=== PATIENT | female | born 1990 | race Caucasian/White ===

== ENCOUNTER 2016-05-05 23:23 | Emergency (ER) | payer OTHER ==
[2016-05-05 23:28] VITALS: TEMP 98.3
--- NOTE | 2016-05-05 23:49 | ED ---
Abdominal Pain HPI - General Chief Complaint: Abdominal Pain Stated Complaint: Back Pain Time Seen by Provider: 05/05/16 23:35 Source: patient, RN notes reviewed Mode of arrival: ambulatory Limitations: no limitations - History of Present Illness Initial Comments: This is a 26-year-old female who states she's had urinary frequency for about a week. She was seen at [facility] 4 days ago and diagnosed with urinary tract infection and started on Keflex. He states the pain is slightly better initially however started on right now is in the left she does have still frequency her pain is slightly better tonight and 67/10 in severity does seem to radiate down toward her groin on the right side. She does state the pain somewhat he gets worse with deep breathing though she denies any fevers chills nausea vomiting sweats at this time though she did have some nausea earlier she does states she's also been taking a lot of Motrin. No other complaints at this time there is a remote family history kidney stones with a grandmother. The patient has no personal history of kidney stones. She states she is not she had a negative test 4 days ago he also is on Depo. Complaint: flank pain, other - Related Data Home Medications Medication Instructions Recorded Confirmed Cephalexin [Keflex] 500 mg PO Q6HR 05/05/16 05/05/16 HYDROcodone/APAP 5-325MG [Hector 2 tab PO Q6H PRN 05/05/16 05/05/16 5-325] Previous Rx's Medication Instructions Recorded Phenazopyridine HCl [Pyridium] 200 mg PO AC-TID #15 tablet 05/06/16 Allergies Allergy/AdvReac Type Severity Reaction Status Date / Time codeine Allergy Severe Anaphylaxis Verified 05/05/16 23:38 Review of Systems ROS Statement: Those systems with pertinent positive or pertinent negative responses have been documented in the HPI. ROS Other: All systems not noted in ROS Statement are negative. Past Medical History Past Medical History: No Reported History History of Any Multi-Drug Resistant Organisms: None Reported Past Surgical History: Section Past Anesthesia/Blood Transfusion Reactions: No Reported Reaction Past Psychological History: No Psychological Hx Reported Smoking Status: Current every day smoker Past Alcohol Use History: Rare Past Drug Use History: Cocaine, Heroin - Past Family History Mother Family Medical History: No Reported History General Exam - General Exam Comments Initial Comments: This is a well-developed well-nourished awake alert oriented 3 female Limitations: no limitations General appearance: alert, in no apparent distress Head exam: Present: atraumatic, normocephalic, normal inspection Eye exam: Present: normal appearance, PERRL, EOMI. Absent: scleral icterus, conjunctival injection, periorbital swelling ENT exam: Present: normal exam, mucous membranes moist Neck exam: Present: normal inspection. Absent: tenderness, meningismus, lymphadenopathy Respiratory exam: Present: normal lung sounds bilaterally. Absent: respiratory distress, wheezes, rales, rhonchi, stridor Cardiovascular Exam: Present: regular rate, normal rhythm, normal heart sounds. Absent: systolic murmur, diastolic murmur, rubs, gallop, clicks GI/Abdominal exam: Present: soft, normal bowel sounds. Absent: distended, tenderness, guarding, rebound, rigid Rectal exam: Present: deferred Extremities exam: Present: normal inspection, full ROM, normal capillary refill. Absent: tenderness, pedal edema, joint swelling, calf tenderness Back exam: Present: normal inspection, CVA tenderness (R). Absent: CVA tenderness (L), paraspinal tenderness, vertebral tenderness Neurological exam: Present: alert, oriented X3, CN II-XII intact Psychiatric exam: Present: normal affect, normal mood Skin exam: Present: warm, dry, intact, normal color. Absent: rash Course Vital Signs 05/05/16 23:26 Temperature 98.3 F Pulse Rate 103 H Respiratory 18 Rate Blood Pressure 117/77 O2 Sat by Pulse 98 Oximetry - Reevaluation(s) Reevaluation #1: 05/06/16 00:25 Records were obtained from [facility] from 05/02/16 urine did show evidence of nitrites greater than 100 white cells 11-20 red cells and many bacteria. I did review the culture sensitivity it did show greater than 100, 000 E. coli. From the findings the Keflex the patient is on should be adequate. Medical Decision Making - Medical Decision Making I did review the CAT scan are is evidence of small calcifications both kidneys nothing obstructive however. I did discuss findings with the patient she will continue with Keflex she will be placed on Pyridium due to the symptoms of frequency she is to continue the Keflex oral fluids follow-up with Dr. caceres when necessary - Lab Data Lab Results 05/05/16 Range/Units 23:50 Urine Color Yellow Urine Appearance Clear (Clear) Urine pH 6.0 (5.0-8.0) Ur Specific [place] 1.018 (1.001-1.035) Urine Protein Trace H (Negative) Urine Glucose (UA) Negative (Negative) Urine Ketones Negative (Negative) Urine Blood Negative (Negative) Urine Nitrate Negative (Negative) Urine Bilirubin Negative (Negative) Urine Urobilinogen 2.0 (<2.0) mg/dL Ur Leukocyte Esterase Trace H (Negative) Urine RBC 1 (0-5) /hpf Urine WBC 10 H (0-5) /hpf Ur Squamous Epith Cells 2 (0-4) /hpf Hyaline Casts 3 H (0-2) /lpf Urine Mucus Moderate H (None) /hpf - Radiology Data Radiology results: report reviewed (I did review the imaging and report no acute findings patient does demonstrate mild scoliosis some pelvic calcifications are seen on the right.), image reviewed Disposition Clinical Impression: Urinary tract infection Disposition: HOME SELF-CARE Condition: Good Instructions: Dysuria (ED), Urinary Tract Infection in Women (ED) Prescriptions: Phenazopyridine HCl [Pyridium] 200 mg PO AC-TID #15 tablet
[2016-05-06 00:03] LABS: Appearance,Urine Clear (Clear); Bilirubin,Urine Negative (Negative); Glucose,Urine (UA) Negative (Negative); Ketones,Urine Negative (Negative); Leukocyte Esterase,Urine Trace (Negative); Mucus,Urine Moderate /hpf; Nitrite,Urine Negative (Negative); Particle Count 4361; Protein,Urine Trace (Negative); RBC,Urine 1 /hpf (0-5); Specific Gravity,Urine 1.018 (1.001-1.035); Squamous Epithelial Cell,Urine 2 /hpf (0-4); UA Billing (MACRO vs. MICRO) MICRO; WBC,Urine 10 /hpf (0-5)
--- NOTE | 2016-05-06 00:05 | XR ---
EXAMINATION TYPE: XR abdomen 1V DATE OF EXAM: 05/05/2016 11:55 PM CLINICAL HISTORY: Pain, back pain TECHNIQUE: 2 frontal upright radiographs of abdomen were obtained. COMPARISON: 09/14/2013 FINDINGS: Scattered gas is seen in non-distended small bowel loops. Gas and fecal material is seen in non-distended colon. There is no visceromegaly, pneumoperitoneum, or abnormal calcification appr eciated. The lung bases are clear and the osseous structures are intact. There is mild S-shaped scol iosis noted in the thoracolumbar spine. IMPRESSION: Mild to moderate fecal material in the colon. Overall nonobstructive bowel gas pattern.
[2016-05-06] MEDS ORDERED: ACETAMINOPHEN TAB 500 MG TAB PO STA (00:10)
--- NOTE | 2016-05-06 00:52 | CT ---
EXAMINATION TYPE: CT abdomen pelvis wo con DATE OF EXAM: 05/06/2016 12:30 AM COMPARISON: NONE HISTORY: back pain, renal stone protocol CT DLP: 231.00 mGycm Automated exposure control for dose reduction was used. TECHNIQUE: Helical acquisition of images was performed from the lung bases through the pelvis. FINDINGS: LUNG BASES: No significant abnormality is appreciated. LIVER/GB: There is mild hepatomegaly. Gallbladder is contracted and showed slightly thickened wall wi th possible chronic changes. PANCREAS: No significant abnormality is seen. SPLEEN: There is mild splenomegaly. ADRENALS: No significant abnormality is seen. KIDNEYS: No significant hydronephrosis or obstructing opaque stones are noted in the right kidney and right ureter. Tiny 1 to 2 mm nonobstructing stones are suggested in the right kidney. Tiny 3 mm nonobstructing stone is noted in the lower pole area of left kidney. No definite obstructin g opaque stones are noted in the left kidney and left ureter. No hydronephrosis is noted on the left side. The distal bilateral ureters are not well visualized. Tiny densities in the pelvis are most likely ph leboliths rather than distal ureter stones. RETROPERITONEAL ADENOPATHY: None visualized REPRODUCTIVE ORGANS: Uterus appears prominent in size. Mild cystic changes are suggested in both ovar ies. There is possibility of tiny free fluid in the right cul-de-sac. URINARY BLADDER: No significant abnormality is seen. PELVIC ADENOPATHY: None visualized. OSSEOUS STRUCTURES: No significant abnormality is seen. BOWEL: Patient is constipated. Large amount of fecal material is noted in the colon. Visualized appendix in the coronal image 29 and axial image 116 appears unremarkable. OTHER: IMPRESSION: 1. TINY NONOBSTRUCTING OPAQUE STONES ARE NOTED IN BOTH KIDNEYS WITHOUT SIGNIFICANT HYDRONEPHROSIS OR HYDROURETER BILATERALLY. NO DEFINITE OBSTRUCTING OPAQUE STONES ARE NOTED IN BOTH URETERS. 2. PATIENT IS CONSTIPATED. 3. MILD HEPATOSPLENOMEGALY. 4. VISUALIZED APPENDIX SHOWED NO SIGNIFICANT INFLAMMATION. 5. CONTRACTED GALLBLADDER.
--- NOTE | 2016-05-06 01:08 | ED ---
Medical Decision Making - Lab Data Lab Results 05/05/16 Range/Units 23:50 Urine Color Yellow Urine Appearance Clear (Clear) Urine pH 6.0 (5.0-8.0) Ur Specific [place] 1.018 (1.001-1.035) Urine Protein Trace H (Negative) Urine Glucose (UA) Negative (Negative) Urine Ketones Negative (Negative) Urine Blood Negative (Negative) Urine Nitrate Negative (Negative) Urine Bilirubin Negative (Negative) Urine Urobilinogen 2.0 (<2.0) mg/dL Ur Leukocyte Esterase Trace H (Negative) Urine RBC 1 (0-5) /hpf Urine WBC 10 H (0-5) /hpf Ur Squamous Epith Cells 2 (0-4) /hpf Hyaline Casts 3 H (0-2) /lpf Urine Mucus Moderate H (None) /hpf Disposition Clinical Impression: Urinary tract infection, Renal colic on right side Disposition: HOME SELF-CARE Condition: Good Instructions: Urinary Tract Infection in Women (ED), Dysuria (ED), Renal Colic (ED) Prescriptions: Phenazopyridine HCl [Pyridium] 200 mg PO AC-TID #15 tablet Referrals: Tabatha Huynh MD [Primary Care Provider] - 1-2 days
[2016-05-06 01:16] VITALS: BP 120/56; PULSE 87; RESP 16
== END 2016-05-06 01:13 | disposition home or self-care (01) ==
LOC: EC 23:23
DX: N39.0 Urinary tract infection, site not specified (principal); B96.20 Unspecified Escherichia coli [E. coli] as the cause of diseases classified elsewhere; N28.89 Other specified disorders of kidney and ureter; R10.31 Right lower quadrant pain; Z84.1 Family history of disorders of kidney and ureter; F17.200 Nicotine dependence, unspecified, uncomplicated; Z88.5 Allergy status to narcotic agent
CPT/HCPCS: 74000; 74176; 81001; 87086; 99284

== ENCOUNTER 2019-02-04 12:51 | Outpatient (CLI) | payer OTHER ==
[2019-02-04 13:55] VITALS: BP 118/69; PULSE 99; RESP 16; TEMP 97.3
--- NOTE | 2019-02-05 07:05 | P.MSEPDOC ---
Presenting Problems - Arrival Data Date of Arrival on Unit: 02/04/19 Time of Arrival on Unit: 12:51 Mode of Transport: Ambulatory - Complaint OB-Reason for Admission/Chief Complaint: Possible Onset of Labor Comment: pelvic pressure and occassional abdominal tightening Medical History - Information : 3 Para: 2 Term: 2 : 0 Abortions: Spontaneous or Elective: 0 Number of Living Children: 2 - Gestational Age Gestational Age by JENNIE (wks/days): 31 Weeks and 2 Days Review of Systems - Review of Systems Constitutional: No problems Breast: No problems ENT: No problems Cardiovascular: No problems Respiratory: No problems Gastrointestinal: No problems Genitourinary: No problems Musculoskeletal: No problems Neurological: No problems Skin: No problems Vital Signs - Temperature Temperature: 97.3 F Temperature Source: Temporal Artery Scan - Pulse Pulse Oximetery Pulse Rate: 99 Pulse Assessment Method: Pulse Oximetry - Respirations Respiratory Rate: 16 Oxygen Delivery Method: Room Air O2 Sat by Pulse Oximetry: 99 - Blood Pressure Right Arm Blood Pressure: 118/69 Blood Pressure Mean: 85 Blood Pressure Source: Automatic Cuff Medical Screen Scoring (Pre) - Cervical Exam Dilation: 0 cm = 0 Effacement: Exam Deferred Membranes: Intact - Uterine Contractions Frequency: N/A Duration: N/A Intensity: N/A - Maternal Vital Signs Maternal Temperature: N/A Maternal Blood Pressure: N/A Signs of Preeclampsia: N/A Maternal Respirations: N/A - Maternal Trauma Maternal Trauma: N/A - Assessment - Baby A Baseline FHR: 125 Heart Rate - NICHD Category: Category I (Normal) = 0 NST: Reactive Position: N/A Station: N/A - Total Score - Baby A Total Score - Baby A: 0 - Total Score - Baby B Total Score - Baby B: 0 - Total Score - Baby C Total Score - Baby C: 0 - Level of Risk - Baby A Level of Risk - Baby A: Low (0-5) - Level of Risk - Baby B Level of Risk - Baby B: Low (0-5) - Level of Risk - Baby C Level of Risk - Baby C: Low (0-5) Physician Notification (Pre) - Physician Notified Physician Notified Date: 02/04/19 Physician Notified Time: 13:30 New Order Received: Yes (discharge home) - Notification Comment Comment: Dr. Faith called, report given on maternal/ status, pt complaint of. "pelvic pressure" and abdominal tightening for several hours. Pt has no complications. with the but admits to intercourse within the last 24 hours. Initial BP was. 142/80, repeat was 118/69, no history of BP issues. Sterile vag exam performed, closed. and thick. No contractions noted on the monitor and NST is reactive. Orders to discharge pt with instructions to see Dr. Hays this week and refrain from any intercourse until she is seen by Dr. Hays. Disposition - Disposition OB Disposition: Discharge to home, Written follow up instructions reviewed Discharge Date: 02/04/19 Discharge Time: 13:35 I agree with the RN Medical Screening Exam: Yes Risk & Benefit of care provided described in d/c instruction: Yes Diagnosis: FALSE LABOR BEFORE 37 COMPLETED WEEKS OF GEST, THIRD TRI (Patient presented with complaints of cramping after having intercourse. fibronectin could not be obtained due to recent intercourse. Cervix was closed patient was having no appreciable contractions. Patient's felt be stable for discharge home follow up with Dr. Subramanian as scheduled. Return if she had increased symptomatology for labor symptoms. She is refrain from intercourse until her visit.)
== END 2019-02-04 13:35 | disposition home or self-care (01) ==
LOC: FBPOP 12:51
PROVIDERS: ATTEND Obstetrics & Gynecology
DX: O47.03 False labor before 37 completed weeks of gestation, third trimester (principal); Z3A.31 31 weeks gestation of pregnancy
CPT/HCPCS: 59025; G0463; 99213

== ENCOUNTER 2019-03-17 23:06 | Observation (INO) | payer OTHER ==
[2019-03-18] MEDS ORDERED: BUTORPHANOL 1 MG/ML 1 ML VIAL IV PRN (00:59)
[2019-03-18] MEDS: LACTATED RINGERS 1,000 ML IV SCH ×2 (01:26→06:39)
[2019-03-18 06:36] VITALS: BP 107/53; PULSE 66; RESP 15; TEMP 96.9
[2019-03-18] MEDS ORDERED: LACTATED RINGERS 1,000 ML IV SCH (06:45)
--- NOTE | 2019-03-18 10:48 | P.HPOB ---
History of Present Illness H&P Date: 03/18/19 Chief Complaint: False labor Lili is a 28-year-old 3 para 2 at 37 weeks gestation who last evening made a "midwives improved" with mineral oil and quad reduce and some other T with hopes of causing contractions that she's had 2 prior sections and wanted no contractions felt like. This is the reason she gave she denies wanting to put herself into labor, however it is unclear why she would make this decision since she is already scheduled for section on April 04. We reviewed risks of labor in a woman who is had 2 prior sections and explained that unfortunately unless she was in actual labor we would not do a section as she is only 37 weeks. Her cervix did not make change remained fingertip thick and -3 station throughout the evening. We did start an IV and give her some pain relief and contractions began to space out and at this time her contractions are very irregular and not painful as she was actually able to sleep for several hours this morning. Advised not to take any type of medicine like this again as it increases risk for uterine rupture or other potential problems compromising both she and her baby. She seems to understand this. All the questions are answered for her at this time. On physical exam vital signs are stable and afebrile. A category 1 tracing is noted. Heart regular, lungs clear, extremities are without pain. Abdomen soft and there is only intermittent contractions at this time. Assessment observational care. Plan discharge later today if contractions continue to dissipate Past Medical History Past Medical History: No Reported History History of Any Multi-Drug Resistant Organisms: None Reported Past Surgical History: Section Past Anesthesia/Blood Transfusion Reactions: No Reported Reaction Past Psychological History: Anxiety Smoking Status: Current every day smoker Past Alcohol Use History: None Reported, Rare Past Drug Use History: None Reported - Past Family History Mother Family Medical History: No Reported History Medications and Allergies Home Medications Medication Instructions Recorded Confirmed Type Pnv No.95/Ferrous Fum/Folic AC 1 tab PO DAILY 02/04/19 03/17/19 History [ Multivitamin Tablet] Allergies Allergy/AdvReac Type Severity Reaction Status Date / Time codeine Allergy Severe Anaphylaxis Verified 03/17/19 23:29 Exam Osteopathic Statement: *. No significant issues noted on an osteopathic structural exam other than those noted in the History and Physical/Consult. Vital Signs Temp Pulse Resp BP Pulse Ox 03/18/19 06:35 96.9 F L 66 15 107/53 03/18/19 02:54 96.8 F L 89 18 118/75 100 03/18/19 00:53 97.5 F L 94 16 138/83 98 Intake and Output 03/17/19 03/18/19 03/18/19 22:59 06:59 14:59 Other: # Voids 2 Weight 63.503 kg
--- NOTE | 2019-03-18 10:50 | P.DS ---
Providers Date of admission: 03/18/19 02:27 Expected date of discharge: 03/18/19 Attending physician: Sanchez Hays Primary care physician: Stated None Hospital Course: Lili again took a concoction to try and give herself contractions last night. She did contract quite a bit anywhere from every 2-4 minutes for a number of hours, however she made no cervical change and with a category 1 tracing the entire time no other therapy was needed other than some hydration and pain control. Had her cervix made change or there were concerns or questions or potential uterine tear or rupture would it moved immediately to a section, but after several hours of contractions they have virtually gone away. Her cervix remained fingertip thick and high. We are going to allow her to eat some breakfast this morning, and then discharge her to home she hasn't plugged follow-up with me in 1 week. However, should contractions increase or more problems occur she is to return immediately. All the questions were answered for her and discharge instructions were thoroughly reviewed especially including to please not take any more of that concoction to try and put her into labor due to risks both maternal and which may include uterine tear or rupture resulting in bleeding or for she and/or the baby. Patient Condition at Discharge: Good Plan - Discharge Summary New Discharge Prescriptions: No Action Pnv No.95/Ferrous Fum/Folic AC [ Multivitamin Tablet] 1 tab PO DAILY Discharge Medication List Pnv No.95/Ferrous Fum/Folic AC [ Multivitamin Tablet] 1 tab PO DAILY 02/04/19 [History]
== END 2019-03-18 11:05 | disposition home or self-care (01) ==
LOC: FBPOP 23:06 → 4FBP 03-18 02:27
PROVIDERS: ADMIT Obstetrics & Gynecology; ATTEND Obstetrics & Gynecology
DX: O47.1 False labor at or after 37 completed weeks of gestation (principal); F17.200 Nicotine dependence, unspecified, uncomplicated; Z98.891 History of uterine scar from previous surgery
CPT/HCPCS: 59025; 96361; 96374; G0463; G0378; J0595; 99214

== ENCOUNTER 2019-03-31 10:00 | Inpatient (IN) | payer OTHER ==
--- NOTE | 2019-03-30 09:16 | P.HPOB ---
History of Present Illness H&P Date: 03/30/19 Chief Complaint: Intrauterine at term: Repeat Lili is a 28-year-old at 39 weeks gestation who ryes for repeat section. Risks/benefits/alternatives to this procedure were discussed with the patient in detail and all questions were answered for her prior to proceeding to the operating room. She has had 2 prior sections. Her vital signs are stable and afebrile. Her course has been unremarkable up to this point and she is feeling well at this time. Risks/benefits/alternatives were reviewed including but not limited to bleeding and infection, damage to bladder or bowel, vascular injuries or nerve damage. She is aware that this is a surgical procedure and that there are also anesthetic risks involved. Past Medical History Past Medical History: No Reported History History of Any Multi-Drug Resistant Organisms: None Reported Past Surgical History: Section Past Anesthesia/Blood Transfusion Reactions: No Reported Reaction Past Psychological History: Anxiety Smoking Status: Current every day smoker Past Alcohol Use History: None Reported, Rare Past Drug Use History: None Reported - Past Family History Mother Family Medical History: No Reported History Medications and Allergies Home Medications Medication Instructions Recorded Confirmed Type Pnv No.95/Ferrous Fum/Folic AC 1 tab PO DAILY 02/04/19 03/17/19 History [ Multivitamin Tablet] Allergies Allergy/AdvReac Type Severity Reaction Status Date / Time codeine Allergy Severe Anaphylaxis Verified 03/17/19 23:29 Exam Osteopathic Statement: *. No significant issues noted on an osteopathic structural exam other than those noted in the History and Physical/Consult. - OBG Physical Exam Breast: both: normal (no masses) Abdomen: bowel sounds normal, no diffuse tenderness, no bruit present, no guarding noted, no hepatomegaly, no splenomegaly, no mass Vulva: both: normal Vagina: normal moisture, no discharge Cervix: no lesion, no discharge Uterus: normal size, normal contour Adnexa: both: normal Anus/Rectum: normal perianal skin, no rectal mass, no hemorrhoids, heme negative
[2019-03-30 11:10] VITALS: BMI 24.8
[2019-03-31] MEDS ORDERED: CITRIC ACID-SODIUM CITRATE 15 ML CUP PO ONE (10:21)
[2019-03-31] MEDS: LACTATED RINGERS 1,000 ML IV SCH ×4 (10:37→23:34)
[2019-03-31 11:01] LABS: Basophils % (A) 0 %; Eosinophils % (A) 0 %; HCT 36.3 % (34.0-46.0); HGB 12.3 gm/dL (11.4-16.0); Lymphocytes # (A) 1.3 k/uL (1.0-4.8); Lymphocytes % (A) 17 %; MCH 31.1 pg (25.0-35.0); MCHC 33.9 g/dL (31.0-37.0); MCV 91.6 fL (80.0-100.0); Monocytes # (A) 0.4 k/uL (0-1.0); Monocytes % (A) 5 %; Neutrophils # (A) 6.1 k/uL (1.3-7.7); Neutrophils % (A) 77 %; Platelet Count 150 k/uL (150-450); RBC 3.96 m/uL (3.80-5.40); RDW 13.2 % (11.5-15.5)
[2019-03-31 11:21] LABS: Amphetamine Screen,Urine Not Detected (NotDetected); Barbiturate Screen,Urine Not Detected (NotDetected); Benzodiazepines Screen,Urine Not Detected (NotDetected); Cocaine Screen,Urine Not Detected (NotDetected); Methadone Screen, Urine Not Detected (NotDetected); Opiate Screen,Urine Not Detected (NotDetected); Oxycodone Screen, Urine Not Detected (NotDetected); Phencyclidine Screen,Urine Not Detected (NotDetected); Tricyclic Antidepressant,Urine Not Detected (NotDetected); Urn Cannabinoid Scrn Not Detected (NotDetected)
[2019-03-31] MEDS ORDERED: diphenhydrAMINE 50 MG/ML 1 ML VIAL ONE (12:10)
[2019-03-31] MEDS ORDERED: OXYTOCIN 10 UNIT/ML 1 ML VIAL ONE (12:10)
[2019-03-31] MEDS ORDERED: DEXAMETHASONE SOD PHOS (MDV) 100 MG/10 ML VIAL ONE (12:10)
[2019-03-31] MEDS ORDERED: ONDANSETRON 4 MG/2 ML VIAL ONE (12:10)
[2019-03-31] MEDS ORDERED: fentaNYL (PF) 50 MCG/ML 2 ML AMP ONE (12:10)
[2019-03-31] MEDS ORDERED: KETOROLAC 30 MG/ML 1 ML VIAL ONE (12:10)
[2019-03-31] MEDS ORDERED: NALBUPHINE 10 MG/ML (1 ML AMP) ONE (12:10)
[2019-03-31] MEDS ORDERED: MORPHINE SULFATE (PF) 0.3 MG/0.3 ML SYR ONE (12:10)
[2019-03-31] MEDS ORDERED: KETOROLAC 30 MG/ML 1 ML VIAL IVP PRN ×2 (12:47→12:59)
[2019-03-31] MEDS ORDERED: diphenhydrAMINE 50 MG/ML 1 ML VIAL IVP PRN ×3 (12:47→12:59)
[2019-03-31] MEDS ORDERED: NALBUPHINE 10 MG/ML (1 ML AMP) IV PRN (12:47)
[2019-03-31] MEDS ORDERED: MORPHINE SULFATE 2 MG/ML SYRINGE IVP PRN (12:47)
[2019-03-31] MEDS ORDERED: NALOXONE 0.4 MG/ML 1 ML VIAL IV PRN ×2 (12:47→12:59)
[2019-03-31] MEDS ORDERED: ONDANSETRON 4 MG/2 ML VIAL IVP PRN (12:59)
[2019-03-31] MEDS ORDERED: SIMETHICONE 80 MG CHEWABLE PO PRN (12:59)
[2019-03-31] MEDS ORDERED: ZOLPIDEM 5 MG TAB PO PRN (12:59)
[2019-03-31] MEDS ORDERED: diphenhydrAMINE 25 MG CAP PO PRN (12:59)
[2019-03-31] MEDS ORDERED: diphenhydrAMINE 50 MG CAP PO PRN (12:59)
[2019-03-31] MEDS ORDERED: METOCLOPRAMIDE 5 MG/ML 2 ML VIAL IVP PRN (12:59)
--- NOTE | 2019-03-31 13:04 | P.OP ---
Date of Procedure: 03/31/19 Preoperative Diagnosis: Intrauterine at term: Prior section Postoperative Diagnosis: Same Procedure(s) Performed: Repeat low transverse section Anesthesia: spinal Surgeon: Sanchez Hays Paving Crew Foreman #1: Sujey Corona Estimated Blood Loss (ml): 400 IV fluids (ml): 500 Urine output (ml): 100 Pathology: other (Placenta) Condition: stable Disposition: floor Operative Findings: Female scores of 4, 7, and 9 at one and 5 and 10 minutes with a weight of 7 lbs. 1 oz. Description of Procedure: Patient was taken to the operating suite where a spinal anesthetic was found be adequate. She was prepped and draped in normal sterile fashion and placed in the dorsal supine position with leftward tilt. Initially a Pfannenstiel skin incision was made and this incision knife. Fascia was then nicked in the midline and this opening was extended laterally with He scissors. Superior and inferior aspect of this incision were then grasped tented up and bluntly and sharply dissected off the rectus muscles. Rectus muscles were then divided midline and sharp dissection through the peritoneum was made. This opening was then extended superiorly and inferiorly with good visualization of both bowel bladder. Bladder blade was then placed bladder flap identified and entered with metastases scissors and carried across face uterus but sponsors. Bladder was then dissected out of the operative field. Knife was then used to incise uterus this opening was then fully developed with hemostat and then extended bluntly. Artificial rupture membranes revealed light meconium noted. Once accomplished head was atraumatically delivered followed by anterior posterior shoulders with gentle downward and upward traction and the remainder the baby. At patient's request uterus was then exteriorized cleared of clots and debris and closed in 1 layer with 0 Vicryl suture. 3-0 Vicryl was then used to redrape reapproximate the bladder flap. Blood and debris was then suctioned from the posterior cul-de-sac and the uterus was reinserted into the abdomen. Peritoneal layer was then delineated with hemostats and closed with 0 Vicryl suture. Fascial layer was then closed with 0 Vicryl suture. One layer of 3-0 Vicryl was placed in the deep subcuticular tissues to reapproximate the skin the skin was then closed with 3-0 Vicryl subcuticularly. Sponge, lap, needle counts were all correct 2. She was then taken to the recovery room in stable and satisfactory condition.
[2019-03-31] MEDS: IBUPROFEN 600 MG TAB PO PRN (19:53)
[2019-03-31] MEDS: SENNOSIDES-DOCUSATE SODIUM 1 EACH TAB PO SCH (19:54)
[2019-03-31 20:18] VITALS: RESP 16
[2019-03-31] MEDS: HYDROcodone/APAP 7.5-325MG 1 EACH TAB PO PRN (23:53)
[2019-04-01] MEDS: IBUPROFEN 600 MG TAB PO PRN ×3 (03:57→18:00)
[2019-04-01] MEDS: LACTATED RINGERS 1,000 ML IV SCH (04:01)
[2019-04-01 07:05] LABS: Basophils % (A) 0 %; Eosinophils % (A) 0 %; HCT 33.1 % (34.0-46.0); HGB 11.2 gm/dL (11.4-16.0); Lymphocytes # (A) 1.8 k/uL (1.0-4.8); Lymphocytes % (A) 15 %; MCH 30.9 pg (25.0-35.0); MCHC 33.7 g/dL (31.0-37.0); MCV 91.8 fL (80.0-100.0); Mean Platelet Volume 9.1; Monocytes # (A) 0.7 k/uL (0-1.0); Monocytes % (A) 6 %; Neutrophils # (A) 9.2 k/uL (1.3-7.7); Neutrophils % (A) 77 %; Platelet Count 143 k/uL (150-450); RBC 3.61 m/uL (3.80-5.40); RDW 13.2 % (11.5-15.5); WBC 11.9 k/uL (3.8-10.6)
--- NOTE | 2019-04-01 07:28 | P.PNOBGPC ---
Subjective - Subjective Patient reports: Reports appetite normal, Reports voiding normally, Reports pain well controlled, Reports ambulating normally : doing well Objective - Vital Signs Latest vital signs: Vital Signs Temp Pulse Resp BP Pulse Ox 04/01/19 04:00 98.3 F 68 16 112/65 04/01/19 00:00 98.3 F 63 16 110/63 99 03/31/19 21:00 100 03/31/19 20:00 97.8 F 67 16 115/61 03/31/19 17:00 18 03/31/19 15:48 16 97 03/31/19 15:00 97.5 F L 54 L 16 122/73 99 03/31/19 14:30 56 L 16 144/67 100 03/31/19 14:00 97.1 F L 59 L 16 123/64 100 03/31/19 13:46 16 99 03/31/19 13:45 55 L 18 109/58 100 03/31/19 13:30 57 L 18 123/69 100 03/31/19 13:15 73 18 118/65 99 03/31/19 13:00 97.6 F 74 18 114/58 97 03/31/19 12:48 18 97 03/31/19 10:52 97.6 F 77 18 135/67 98 Intake and Output 03/31/19 04/01/19 04/01/19 22:59 06:59 14:59 Output Total 2800 2700 Balance -2800 -2700 Output: Urine 2800 2700 Straight 900 Uretheral (Jimenez) 1400 Other: # Voids 1 - Exam Lungs: bilateral: normal Chest: Normal S1, Normal S2 Extremities: Present: normal Abdomen: Present: normal appearance, soft. Absent: distention, tenderness Incision: Present: normal, dry, intact Uterus: Present: normal, firm - Labs Labs: Abnormal Lab Results - Last 24 Hours (Table) 04/01/19 Range/Units 06:40 WBC 11.9 H (3.8-10.6) k/uL RBC 3.61 L (3.80-5.40) m/uL Hgb 11.2 L (11.4-16.0) gm/dL Hct 33.1 L (34.0-46.0) % Plt Count 143 L (150-450) k/uL Neutrophils # 9.2 H (1.3-7.7) k/uL Assessment and Plan Assessment: Postoperative day #1. Patient is resting without complaints. Vital signs are stable she is afebrile. Her incision is intact and dry. CBC was normal today. Plan is to continue regular diet, encourage ambulation, allow the patient to shower, and most likely will go home tomorrow. (1) delivery delivered Current Visit: No Status: Acute Code(s): O82 - ENCOUNTER FOR DELIVERY WITHOUT INDICATION SNOMED Code(s): 887389476
--- NOTE | 2019-04-01 08:17 | P.PN ---
Progress Note - Text Progress Note Date: 04/01/19 ( ) 28 yo s/p c/section with duramorph spinal. Ambulating well, VAS 2-4/10 in severity. no pruritis, voiding well, no motor or sensory deficits. no back pain. overall doing well.
[2019-04-01] MEDS: SENNOSIDES-DOCUSATE SODIUM 1 EACH TAB PO SCH ×2 (09:18→20:46)
[2019-04-01] MEDS: ACETAMINOPHEN TAB 325 MG TAB PO PRN (09:18)
[2019-04-01] MEDS: HYDROcodone/APAP 7.5-325MG 1 EACH TAB PO PRN ×2 (14:51→20:49)
[2019-04-02] MEDS: IBUPROFEN 600 MG TAB PO PRN (02:50)
[2019-04-02] MEDS: ACETAMINOPHEN TAB 325 MG TAB PO PRN (05:29)
--- NOTE | 2019-04-02 07:03 | P.PNOBGPC ---
Subjective - Subjective Patient reports: Reports appetite normal, Reports voiding normally, Reports pain well controlled, Reports ambulating normally : doing well Objective - Vital Signs Latest vital signs: Vital Signs Temp Pulse Resp BP 04/02/19 00:00 98.3 F 68 16 120/82 04/01/19 16:00 98.2 F 69 16 119/60 04/01/19 11:50 97.7 F 73 16 125/79 04/01/19 08:00 97.4 F L 69 16 125/71 - Exam Lungs: bilateral: normal Chest: Normal S1, Normal S2 Extremities: Present: normal Abdomen: Present: normal appearance, soft. Absent: distention, tenderness Incision: Present: normal, dry, intact Uterus: Present: normal, firm - Labs Labs: Abnormal Lab Results - Last 24 Hours (Table) 04/01/19 Range/Units 06:40 WBC 11.9 H (3.8-10.6) k/uL RBC 3.61 L (3.80-5.40) m/uL Hgb 11.2 L (11.4-16.0) gm/dL Hct 33.1 L (34.0-46.0) % Plt Count 143 L (150-450) k/uL Neutrophils # 9.2 H (1.3-7.7) k/uL Assessment and Plan Assessment: Postoperative day #2. Patient is resting without new complaints and wishes to go home. Vital signs are stable she is afebrile. Her incision is intact and dry. Plan today is to continue routine care discharge home later today. (1) delivery delivered Current Visit: No Status: Acute Code(s): O82 - ENCOUNTER FOR DELIVERY WITHOUT INDICATION SNOMED Code(s): 590603946
--- NOTE | 2019-04-02 07:11 | P.DS ---
Providers Date of admission: 03/31/19 10:00 Expected date of discharge: 04/02/19 Attending physician: Sanchez Hays Primary care physician: Stated None - Discharge Diagnosis(es) (1) delivery delivered Current Visit: No Status: Acute Hospital Course: Please see dictated H&P for intimate details of this patient's admission. In brief summary this is a 28-year-old 3 para 2 female admitted for elective repeat section. Patient is admitted she has a repeat low transverse section for viable female . Please see dictated operative note per Dr. Subramanian. Postoperative Day #2 patient's felt to be stable for discharge home follow up with Dr. Hays 1 week. Procedures: Repeat low transverse section Patient Condition at Discharge: Good Plan - Discharge Summary Discharge Rx Participant: No New Discharge Prescriptions: New Ibuprofen [Motrin] 600 mg PO Q6HR PRN #40 tab PRN Reason: Mild Pain Or Fever >= 100.5 HYDROcodone/APAP 7.5-325MG [[place] 7.5-325] 1 each PO Q6H PRN #12 tab PRN Reason: Severe Pain No Action Pnv No.95/Ferrous Fum/Folic AC [ Multivitamin Tablet] 1 tab PO DAILY Acetaminophen Tab [Tylenol Tab] 650 mg PO BID Discharge Medication List Pnv No.95/Ferrous Fum/Folic AC [ Multivitamin Tablet] 1 tab PO DAILY 02/04/19 [History] Acetaminophen Tab [Tylenol Tab] 650 mg PO BID 03/30/19 [History] HYDROcodone/APAP 7.5-325MG [[place] 7.5-325] 1 each PO Q6H PRN #12 tab 04/02/19 [Rx] Ibuprofen [Motrin] 600 mg PO Q6HR PRN #40 tab 04/02/19 [Rx] Follow up Appointment(s)/Referral(s): Sanchez Hays DO [Doctor of Osteopathic Medicine] - 04/13/19 1:30 pm (Patient also has a visit on May 15 at 10 AM.) Patient Instructions/Handouts: (DC) Activity/Diet/Wound Care/Special Instructions: No intercourse or anything per vagina for 6 weeks. No strenuous activity or heavy lifting for 6 weeks. Please call if any fever, chills, excessive vaginal bleeding, and/or abdominal pain. Discharge Disposition: HOME SELF-CARE
[2019-04-02 09:13] VITALS: BP 136/68; PULSE 64; TEMP 98.1
[2019-04-02] MEDS: SENNOSIDES-DOCUSATE SODIUM 1 EACH TAB PO SCH (09:14)
[2019-04-02] MEDS: HYDROcodone/APAP 7.5-325MG 1 EACH TAB PO PRN (09:21)
== END 2019-04-02 10:30 | disposition home or self-care (01) | DRG 788 ==
LOC: 4FBP 10:00
PROVIDERS: ADMIT Obstetrics & Gynecology; ATTEND Obstetrics & Gynecology
PROC: 10D00Z1 Extraction of Products of Conception, Low, Open Approach (ICD-10-PCS; principal; 2019-03-31 12:00)
DX: O34.211 Maternal care for low transverse scar from previous cesarean delivery (principal); O99.334 Smoking (tobacco) complicating childbirth; F17.200 Nicotine dependence, unspecified, uncomplicated; O77.0 Labor and delivery complicated by meconium in amniotic fluid; Z3A.39 39 weeks gestation of pregnancy; Z37.0 Single live birth; Z88.5 Allergy status to narcotic agent; Z86.59 Personal history of other mental and behavioral disorders
CPT/HCPCS: 80306; 85025; 86850; 86900; 86901; 88307

== ENCOUNTER 2020-08-01 08:50 | Inpatient (IN) | payer OTHER ==
[2020-08-01] MEDS ORDERED: OXYTOCIN 10 UNIT/ML 1 ML VIAL IM PRN (10:17)
[2020-08-01] MEDS ORDERED: CARBOPROST TROMETHAMINE 250 MCG/ML 1 ML AMP IM PRN (10:17)
[2020-08-01] MEDS ORDERED: CITRIC ACID-SODIUM CITRATE 15 ML CUP PO ONE (10:19)
[2020-08-01] MEDS ORDERED: LACTATED RINGERS 1,000 ML IV SCH (10:30)
[2020-08-01 10:54] LABS: Basophils % (A) 0 %; Eosinophils % (A) 0 %; HCT 37.9 % (34.0-46.0); HGB 13.2 gm/dL (11.4-16.0); Lymphocytes # (A) 1.6 k/uL (1.0-4.8); Lymphocytes % (A) 21 %; MCH 31.6 pg (25.0-35.0); MCHC 34.7 g/dL (31.0-37.0); Mean Platelet Volume 8.9; Monocytes # (A) 0.3 k/uL (0-1.0); Monocytes % (A) 4 %; Neutrophils # (A) 5.6 k/uL (1.3-7.7); Neutrophils % (A) 73 %; Platelet Count 155 k/uL (150-450); RBC 4.17 m/uL (3.80-5.40); WBC 7.7 k/uL (3.8-10.6)
[2020-08-01] MEDS ORDERED: MORPHINE SULFATE (PF) 0.3 MG/0.3 ML SYR ONE (12:53)
[2020-08-01] MEDS ORDERED: HYDROmorphone (PF) 1 MG/ML ONE (12:53)
[2020-08-01] MEDS ORDERED: ONDANSETRON 4 MG/2 ML VIAL ONE (12:53)
[2020-08-01] MEDS ORDERED: OXYTOCIN 10 UNIT/ML 1 ML VIAL ONE (12:53)
[2020-08-01] MEDS ORDERED: KETOROLAC 15 MG/ML 1 ML VIAL ONE (12:53)
[2020-08-01] MEDS ORDERED: diphenhydrAMINE 50 MG/ML 1 ML VIAL ONE (12:53)
[2020-08-01] MEDS ORDERED: NALBUPHINE 10 MG/ML (1 ML AMP) ONE (12:53)
[2020-08-01] MEDS ORDERED: fentaNYL (PF) 50 MCG/ML 2 ML AMP ONE (12:53)
[2020-08-01] MEDS ORDERED: diphenhydrAMINE 25 MG CAP PO PRN (13:49)
[2020-08-01] MEDS ORDERED: ZOLPIDEM 5 MG TAB PO PRN (13:49)
[2020-08-01] MEDS ORDERED: ONDANSETRON 4 MG/2 ML VIAL IVP PRN (13:49)
[2020-08-01] MEDS ORDERED: NALOXONE 0.4 MG/ML 1 ML VIAL IV PRN (13:49)
[2020-08-01] MEDS ORDERED: HYDROmorphone 2 MG TAB PO PRN (13:49)
[2020-08-01] MEDS ORDERED: diphenhydrAMINE 50 MG CAP PO PRN (13:49)
[2020-08-01] MEDS ORDERED: diphenhydrAMINE 50 MG/ML 1 ML VIAL IVP PRN ×2 (13:49)
[2020-08-01] MEDS ORDERED: METOCLOPRAMIDE 5 MG/ML 2 ML VIAL IVP PRN (13:49)
--- NOTE | 2020-08-01 13:54 | P.HPOB ---
History of Present Illness H&P Date: 08/01/20 Chief Complaint: Uterine at term: Spontaneous rupture membranes: Prior se Pearson is a 22-year-old female who arrives following spontaneous rupture membranes at approximately midnight last night. She is having no contractions and is not in labor. She's had 3 prior sections and risks and benefits of repeat section were already reviewed with patient she declines tubal ligation. Risks did include but were not limited to bleeding and infection, damage to bladder or bowel vascular degrees nerve injuries possible damage to major vessels were nerve's. heart tones in the fetus are reactive prior to proceeding to the operating room. She relates that she was not sure if her water broke until this morning despite having leaking since midnight. Her course otherwise was unremarkable and she is feeling well at this ti me. Past Medical History Past Medical History: Skin Disorder Additional Past Medical History / Comment(s): Hx psoriasis. Hemorrhoids p ainful. Mild edema jama ankles. History of Any Multi-Drug Resistant Organisms: None Reported Past Surgical History: Section Past Anesthesia/Blood Transfusion Reactions: No Reported Reaction Past Psychological History: Anxiety Additional Psychological History / Comment(s): manageable Smoking Status: Never smoker Past Alcohol Use History: None Reported Additional Past Alcohol Use History / Comment(s): Smoking since 2013, was up to 1ppd, now smoking 1/2 ppd est Past Drug Use History: None Reported Additional Drug Use History / Comment(s): past drug use of opiates and cocaine, has been clean for 3 years - Past Family History Mother Family Medical History: No Reported History Medications and Allergies Home Medications Medication Instructions Recorded Confirmed Type Pnv No.95/Ferrous Fum/Folic AC 1 tab PO DAILY 02/04/19 08/01/20 History [ Multivitamin Tablet] Allergies Allergy/AdvReac Type Severity Reaction Status Date / Time codeine Allergy Severe Anaphylaxis Verified 08/01/20 08:54 Exam Osteopathic Statement: *. No significant issues noted on an osteopathic structural exam other than those noted in the History and Physical/Consult. Vital Signs Temp Pulse Resp BP Pulse Ox 08/01/20 11:03 98.4 F 93 14 117/69 98 08/01/20 09:48 98.2 F 65 14 111/78 Intake and Output 07/31/20 08/01/20 08/01/20 22:59 06:59 14:59 Other: Weight 58.967 kg - OBG Physical Exam Breast: both: normal (no masses) Abdomen: bowel sounds normal, no diffuse tenderness, no bruit present, no guarding noted, no hepatomegaly, no splenomegaly, no mass Vulva: both: normal Vagina: normal moisture, no discharge Cervix: no lesion, no discharge Uterus: normal size, normal contour Adnexa: both: normal Anus/Rectum: normal perianal skin, no rectal mass, no hemorrhoids, heme negative Results Result Diagrams: 08/01/20 10:00
--- NOTE | 2020-08-01 14:01 | P.OP ---
Date of Procedure: 08/01/20 Preoperative Diagnosis: Intrauterine at term: Spontaneous rupture membranes: Prior sections Postoperative Diagnosis: Same with uterine vascular injury on the left side Procedure(s) Performed: Repeat low transverse section Anesthesia: spinal Surgeon: Sanchez Hays Electrician Wiring #1: Zara Parsons Estimated Blood Loss (ml): 400 IV fluids (ml): 800 Urine output (ml): 200 Pathology: none sent Condition: stable Disposition: floor Operative Findings: Female scores of 9 and 9 at one and 5 minutes Willard weight was 6 lbs. 3 oz. Left uterine vascular injury noted requiring suture around the uterine vessels on the left side Description of Procedure: Patient was taken to the operative suite where a spinal anesthetic was found be adequate. She was prepped and draped in normal sterile fashion and placed in dorsal supine position with leftward tilt. Initially a Pfannenstiel skin incision was made and this incision was then carried through to the underlying layer of the fascia was second knife. Fascia was then nicked in the midline and this opening was extended laterally with He scissors. Superior and inferior aspect of this incision were then grasped tented up and bluntly and sharply dissected off the rectus muscles. Rectus muscles were then divided midline and sharp dissection the peritoneum was performed. This opening was then extended superiorly and inferiorly with good visualization of both bowel bladder. Bladder blade was then placed and bladder was noted to be out of the operative field therefore skin incision on the uterus was made and this incision was fully developed with hemostat and extended bluntly. Head was then H medically delivered from right occiput anterior position and mouth nares were bulb suction ed. Anterior and posterior shoulders delivered without difficulty followed by the remainder the baby. Umbilical cord was then clamped cut usual fashion an nursery personnel was present to assume care. Placenta was then delivered intact and Pitocin was added to the IV. Uterus was exteriorized cleared of clots and debris and closed with 0 Vicryl suture. During the closure it was noted that there was a vascular injury on the left uterine vessels and the mesosalpinx adnexal area was forming a hematoma. Due to inability to visualize the vessel the area was opened and we're able to visualize the left uterine vessels. Despite attempts to control with interrupted suture in the area around the bleeding the bleeding persisted. We were able to by and large the bleeding to a minimum by using pressure to tympanotomy the vessels. Ultimately a suture was placed around the left uterine vessels and hemostasis was obtained following this suture placement. Urine remained clear throughout the procedure and no blood is noted in the urine conclusion of the procedure. Was felt that we were well above the margins of the ureter where the bleeding was noted. Should any back pain or other symptoms develop will plan I BP. We'll plan to remove leave the Jimenez catheter in overnight so that we can limit her movement at least for now. There was still a small hematoma in the adnexal region and mesosalpinx region but it was not expanding. 5 minutes were spent holding pressure in monitoring the area no bleeding is noted uterus was reinserted into the abdomen no bleeding was noted with this but as a precaution uterus was again brought out and anterior and posterior shoulder sides of the area were visualized and no active bleeding is noted. Uterus was reinserted gently into the abdomen and the peritoneum was reapproximated with 0 Vicryl suture. Fascial layer was closed with 0 Vicryl suture. One layer of 3-0 Vicryl was used to close the subcuticular tissues and the skin was then closed with teddy. Sponge, lap, needle counts were all correct 2. Patient was then taken to the recovery room in stable and satisfactory condition. It is noted vital sounds remained stable throughout the procedure. Intraoperatively I did discuss the possibility of a hysterectomy as the blood vessel was bleeding from well below our incision line and initially was difficult to identify. Will plan early CBC to verify her blood count and then monitor very closely over the next several hours to verify that hemostasis remains.
[2020-08-01 14:28] LABS: Basophils % (A) 0 %; Eosinophils % (A) 0 %; HCT 32.7 % (34.0-46.0); HGB 11.6 gm/dL (11.4-16.0); Lymphocytes # (A) 1.1 k/uL (1.0-4.8); Lymphocytes % (A) 19 %; MCH 32.3 pg (25.0-35.0); MCHC 35.6 g/dL (31.0-37.0); MCV 90.8 fL (80.0-100.0); Mean Platelet Volume 9.8; Monocytes # (A) 0.2 k/uL (0-1.0); Monocytes % (A) 3 %; Neutrophils # (A) 4.3 k/uL (1.3-7.7); Neutrophils % (A) 76 %; Platelet Count 120 k/uL (150-450); WBC 5.7 k/uL (3.8-10.6)
[2020-08-01] MEDS: KETOROLAC 15 MG/ML 1 ML VIAL IVP SCH (17:29)
[2020-08-01] MEDS: SENNOSIDES-DOCUSATE SODIUM 1 EACH TAB PO SCH (20:31)
[2020-08-02] MEDS: KETOROLAC 15 MG/ML 1 ML VIAL IVP SCH ×2 (01:44→08:56)
[2020-08-02 06:55] LABS: Basophils % (A) 0 %; Eosinophils % (A) 0 %; HCT 28.6 % (34.0-46.0); HGB 10.2 gm/dL (11.4-16.0); Lymphocytes # (A) 1.4 k/uL (1.0-4.8); Lymphocytes % (A) 19 %; MCH 32.7 pg (25.0-35.0); MCHC 35.6 g/dL (31.0-37.0); MCV 91.7 fL (80.0-100.0); Mean Platelet Volume 9.3; Monocytes # (A) 0.3 k/uL (0-1.0); Monocytes % (A) 4 %; Neutrophils # (A) 5.7 k/uL (1.3-7.7); Neutrophils % (A) 76 %; Platelet Count 111 k/uL (150-450); RBC 3.12 m/uL (3.80-5.40); RDW 13.1 % (11.5-15.5); WBC 7.4 k/uL (3.8-10.6)
--- NOTE | 2020-08-02 08:42 | P.PNOBGPC ---
Subjective - Subjective Principal diagnosis: Postop Day 1 Interval history: Lili is doing very well this morning. She is involuting. We'll plan remove catheter this morning and continue to advance the diet. All questions are answered for her at this time. Vital signs are stable and afebrile. Heart regular, lungs clear, extremities without pain. Patient reports: Reports appetite normal, Reports voiding normally, Reports pain well controlled, Reports ambulating normally : doing well Objective - Vital Signs Latest vital signs: Vital Signs Temp Pulse Resp BP Pulse Ox 08/02/20 08:00 98.3 F 96 18 113/72 96 08/02/20 04:00 98.0 F 68 15 105/62 99 08/02/20 00:00 68 17 111/67 99 08/01/20 20:00 98.1 F 73 16 109/67 96 08/01/20 16:00 97.7 F 67 16 109/77 08/01/20 15:59 53 L 14 114/74 08/01/20 15:29 48 L 14 115/78 08/01/20 14:59 58 L 16 115/73 98 08/01/20 14:44 48 L 14 116/74 99 08/01/20 14:29 57 L 15 116/83 08/01/20 14:14 50 L 12 113/73 100 08/01/20 13:59 97.6 F 55 L 14 109/61 99 08/01/20 11:03 98.4 F 93 14 117/69 98 08/01/20 09:48 98.2 F 65 14 111/78 Intake and Output 08/01/20 08/02/20 08/02/20 22:59 06:59 14:59 Intake Total 350 Output Total 1400 1000 Balance -1050 -1000 Intake: IV 350 Output: Urine 1400 1000 Other: Voiding Method Indwelling Catheter Indwelling Catheter - Exam Lungs: bilateral: normal Chest: Normal S1, Normal S2 Extremities: Present: normal Abdomen: Present: normal appearance, soft. Absent: distention, tenderness Incision: Present: normal, dry, intact Uterus: Present: normal, firm - Labs Labs: Abnormal Lab Results - Last 24 Hours (Table) 08/01/20 08/02/20 Range/Units 14:07 06:09 RBC 3.60 L 3.12 L (3.80-5.40) m/uL Hgb 10.2 L (11.4-16.0) gm/dL Hct 32.7 L 28.6 L (34.0-46.0) % Plt Count 120 L 111 L (150-450) k/uL
[2020-08-02] MEDS: SENNOSIDES-DOCUSATE SODIUM 1 EACH TAB PO SCH ×2 (08:56→20:05)
--- NOTE | 2020-08-02 09:51 | P.PN ---
Progress Note - Text Progress Note Date: 08/02/20 Patient is a 30 y/o female post op day #1 under epidural catheter. Preservative free epidural duramorph given prior to discontinuing the epidural catheter. Patient doing well with minimal complaints of pain. Had some pruritis over the night which is getting better. No complaints of paresthesias or residual numbness in the lower extremities. VAS 4-5/10 but tolerable per the patient. No lower extremity weakness. Patient pleased with anesthetic and pain management. Will follow up as indicated.
[2020-08-02] MEDS: IBUPROFEN 600 MG TAB PO SCH ×3 (13:48→20:04)
[2020-08-02 14:22] VITALS: RESP 16
[2020-08-02] MEDS: ACETAMINOPHEN TAB 325 MG TAB PO PRN (17:27)
[2020-08-02] MEDS ORDERED: SIMETHICONE 80 MG CHEWABLE PO SCH (22:00)
[2020-08-03] MEDS: IBUPROFEN 600 MG TAB PO SCH ×2 (01:45→08:41)
[2020-08-03] MEDS: KETOROLAC 15 MG/ML 1 ML VIAL IVP SCH (04:14)
[2020-08-03] MEDS: LACTATED RINGERS 1,000 ML IV SCH (04:14)
[2020-08-03] MEDS: ACETAMINOPHEN TAB 325 MG TAB PO PRN (05:50)
--- NOTE | 2020-08-03 07:05 | P.PNOBGPC ---
Subjective - Subjective Patient reports: Reports appetite normal, Reports voiding normally, Reports pain well controlled, Reports ambulating normally Lorida: doing well Objective - Vital Signs Latest vital signs: Vital Signs Temp Pulse Resp BP Pulse Ox 08/02/20 23:25 98.5 F 88 16 128/52 08/02/20 20:00 98.6 F 57 L 16 122/76 08/02/20 16:00 98.5 F 62 16 121/78 08/02/20 12:00 98.0 F 68 16 121/52 08/02/20 08:00 98.3 F 96 18 113/72 96 Intake and Output 08/02/20 08/03/20 08/03/20 22:59 06:59 14:59 Intake Total 250 Balance 250 Intake: Oral 250 Other: # Voids 1 - Exam Lungs: bilateral: normal Chest: Normal S1, Normal S2 Extremities: Present: normal Abdomen: Present: normal appearance, soft. Absent: distention, tenderness Incision: Present: normal, dry, intact Uterus: Present: normal, firm Assessment and Plan Assessment: Post operative day #2. Patient is resting without complaints and wishes to go home. Vital signs are stable she is afebrile. Uterus is firm nontender and she is having normal lochia. CBC yesterday showed a hemoglobin of 10.2. Patient is ambulating and urinating without difficulty and tolerating a regular diet. Incision is intact and dry appears to be healing well. My impression is a normal post operative course. Plan is discharge home follow up with Dr. Hays 1 week. (1) delivery delivered Current Visit: No Status: Acute Code(s): O82 - ENCOUNTER FOR DELIVERY WITHOUT INDICATION SNOMED Code(s): 168594353
--- NOTE | 2020-08-03 07:12 | P.DS ---
Providers Date of admission: 08/01/20 09:45 Expected date of discharge: 08/03/20 Attending physician: Sanchez Hays Primary care physician: Stated None - Discharge Diagnosis(es) (1) delivery delivered Current Visit: No Status: Acute Hospital Course: Please see dictated H&P per Dr. Hays on this patient's admission and delivery. Brief summary this is a pleasant 30-year-old multiparous patient who is admitted to labor and delivery with rupture membranes and history of previous section. Patient underwent a repeat section. The see Dr. Hays's operative note. Postoperatively patient had serial CBCs which were showed appropriate decline. Patient was felt to be stable and on postoperative and 2 is felt to be stable for discharge home follow up with Dr. Hays in 1 week. Procedures: Repeat low transverse section Patient Condition at Discharge: Good Plan - Discharge Summary Discharge Rx Participant: Yes New Discharge Prescriptions: New Ibuprofen [Motrin] 600 mg PO QID #30 tab No Action Pnv No.95/Ferrous Fum/Folic AC [ Multivitamin Tablet] 1 tab PO DAILY Discharge Medication List Pnv No.95/Ferrous Fum/Folic AC [ Multivitamin Tablet] 1 tab PO DAILY 02/04/19 [History] Ibuprofen [Motrin] 600 mg PO QID #30 tab 08/03/20 [Rx] Follow up Appointment(s)/Referral(s): Sanchez Hays DO [Doctor of Osteopathic Medicine] - 08/12/20 1:30 pm (Please see Dr. Hays on September 16 at 3 in the afternoon for visit as well.) Patient Instructions/Handouts: (DC) Activity/Diet/Wound Care/Special Instructions: No heavy lifting or strenuous activity. No intercourse or anything per vagina for 6 weeks. Please call if any fever, chills, excessive vaginal bleeding, and/or abdominal pain. Discharge Disposition: HOME SELF-CARE
[2020-08-03] MEDS: SENNOSIDES-DOCUSATE SODIUM 1 EACH TAB PO SCH (08:41)
[2020-08-03 09:45] VITALS: BP 136/65; PULSE 79; TEMP 98
== END 2020-08-03 11:35 | disposition home or self-care (01) | DRG 788 ==
LOC: FBPOP 08:50 → 4FBP 09:45
PROVIDERS: ADMIT Obstetrics & Gynecology; ATTEND Obstetrics & Gynecology
PROC: 10D00Z1 Extraction of Products of Conception, Low, Open Approach (ICD-10-PCS; principal; 2020-08-01 13:00)
DX: O34.211 Maternal care for low transverse scar from previous cesarean delivery (principal); F17.210 Nicotine dependence, cigarettes, uncomplicated; L29.9 Pruritus, unspecified; O99.334 Smoking (tobacco) complicating childbirth; Z37.0 Single live birth
CPT/HCPCS: 59025; 84112; 85025; 86850; 86900; 86901; 99213

== ENCOUNTER 2021-04-11 09:32 | Emergency (ER) | payer OTHER ==
[2021-04-11 09:36] VITALS: BP 113/71; PULSE 69; RESP 20; TEMP 97.8
[2021-04-11] MEDS ORDERED: PROPARACAINE 0.5% OPHTH DROPS 15 ML BTL RIGHT EYE STA (09:58)
[2021-04-11] MEDS ORDERED: FLUORESCEIN STRIPS 1 MG STRIP RIGHT EYE STA (09:58)
[2021-04-11] MEDS ORDERED: ERYTHROMYCIN 5 MG/GM OPHTH OINT 3.5 GM TUBE RIGHT EYE STA (09:58)
[2021-04-11] MEDS ORDERED: DIPH,PERTUS(ACELL)TETVAC-LF 0.5 ML VIAL IM ONE (09:58)
--- NOTE | 2021-04-11 10:26 | ED ---
General Adult HPI - General Chief complaint: Eye Problems Stated complaint: Rt Eye Injury Time Seen by Provider: 04/11/21 09:43 Source: patient, RN notes reviewed Mode of arrival: ambulatory Limitations: no limitations - History of Present Illness Initial comments: 30-year-old female presents to the emergency room for a chief complaint of right eye pain. Patient states that she was putting her pot blurred to sleep and she accidentally got hit in the eye last night. Patient states it has been painful and blurry. Patient states she wants to be sure she doesn't need antibiotics. She is not up-to-date on tetanus.she does not wear contacts. Patient has no other complaints at this time including shortness of breath, chest pain, abdominal pain, nausea or vomiting, headache, or visual changes. - Related Data Home Medications Medication Instructions Recorded Confirmed Pnv No.95/Ferrous Fum/Folic AC 1 tab PO DAILY 02/04/19 08/01/20 [ Multivitamin Tablet] Previous Rx's Medication Instructions Recorded Ibuprofen [Motrin] 600 mg PO QID #30 tab 08/03/20 Erythromycin Ophth Oint [Romycin 1 applic RIGHT EYE QID 7 Days #1 gm 04/11/21 Ophth Oint] Allergies Allergy/AdvReac Type Severity Reaction Status Date / Time codeine Allergy Severe Anaphylaxis Verified 04/11/21 09:36 Review of Systems ROS Statement: Those systems with pertinent positive or pertinent negative responses have been documented in the HPI. ROS Other: All systems not noted in ROS Statement are negative. Past Medical History Past Medical History: Skin Disorder Additional Past Medical History / Comment(s): Hx psoriasis. Hemorrhoids painful. Mild edema jama ankles. History of Any Multi-Drug Resistant Organisms: None Reported Past Surgical History: Section Past Anesthesia/Blood Transfusion Reactions: No Reported Reaction Past Psychological History: Anxiety Smoking Status: Never smoker Past Alcohol Use History: None Reported Past Drug Use History: None Reported - Past Family History Mother Family Medical History: No Reported History General Exam Limitations: no limitations General appearance: alert, in no apparent distress Head exam: Present: atraumatic Eye exam: Present: PERRL, EOMI, conjunctival injection, periorbital swelling (Minimal edema noted to the eyelid. No swelling in the periorbital area). Absent: scleral icterus, periorbital tenderness ENT exam: Present: normal exam, mucous membranes moist Neck exam: Present: normal inspection, full ROM. Absent: tenderness Respiratory exam: Present: normal lung sounds bilaterally. Absent: respiratory distress, wheezes Cardiovascular Exam: Present: regular rate, normal rhythm, normal heart sounds Course Vital Signs 04/11/21 09:34 Temperature 97.8 F Pulse Rate 69 Respiratory 20 Rate Blood Pressure 113/71 O2 Sat by Pulse 99 Oximetry Medical Decision Making - Medical Decision Making Proparacaine was administered which alleviated patient's pain. Fluorescein stain and Wood's lamp was used to visualize the cornea, there is small abrasion noted at about 7:00. Visual acuity is 20/20 OS, 20/40 OD, 20/20 both eyes. At this time patient treated with erythromycin ointment and tetanus injection. Will follow up with her doctor. Will return for any worsening symptoms. Disposition Clinical Impression: Corneal abrasion, right Disposition: HOME SELF-CARE Condition: Good Instructions (If sedation given, give patient instructions): Corneal Abrasion (ED) Additional Instructions: Please follow-up with your doctor in one to 2 days. Return to the emergency room for any worsening symptoms. Prescriptions: Erythromycin Ophth Oint [Romycin Ophth Oint] 1 applic RIGHT EYE QID 7 Days #1 gm Is patient prescribed a controlled substance at d/c from ED?: No Referrals: Tabatha Huynh MD [Primary Care Provider] - 1-2 days Rui Burrows MD [STAFF PHYSICIAN] - 1-2 days Time of Disposition: 10:25
== END 2021-04-11 10:39 | disposition home or self-care (01) ==
LOC: EC 09:32
DX: S05.01XA Injury of conjunctiva and corneal abrasion without foreign body, right eye, initial encounter (principal); F41.9 Anxiety disorder, unspecified; Z88.5 Allergy status to narcotic agent; X58.XXXA Exposure to other specified factors, initial encounter
CPT/HCPCS: 90471; 90715; 99282

== ENCOUNTER 2021-09-23 21:59 | Emergency (ER) | payer OTHER ==
[2021-09-23 23:36] VITALS: BP 106/69; PULSE 98; RESP 19; TEMP 97.5
[2021-09-24 00:18] LABS: Basophils # (A) 0.1 k/uL (0-0.2); Basophils % (A) 1 %; Eosinophils # (A) 0.1 k/uL (0-0.7); Eosinophils % (A) 1 %; HCT 38.2 % (34.0-46.0); Lymphocytes # (A) 1.9 k/uL (1.0-4.8); Lymphocytes % (A) 33 %; MCH 32.1 pg (25.0-35.0); MCHC 34.1 g/dL (31.0-37.0); MCV 94.1 fL (80.0-100.0); Mean Platelet Volume 7.1; Monocytes # (A) 0.3 k/uL (0-1.0); Monocytes % (A) 5 %; Neutrophils # (A) 3.4 k/uL (1.3-7.7); Neutrophils % (A) 59 %; Platelet Count 232 k/uL (150-450); RBC 4.06 m/uL (3.80-5.40); RDW 13.7 % (11.5-15.5); WBC 5.8 k/uL (3.8-10.6)
[2021-09-24 00:31] LABS: ALT 12 U/L (4-34); AST 24 U/L (14-36); African American GFR (CKD) >90 (>60 ml/min/1.73 sqM); Albumin 4.6 g/dL (3.5-5.0); Alkaline Phosphatase 97 U/L (38-126); Anion Gap 6 mmol/L; Blood Urea Nitrogen 18 mg/dL (7-17); Calcium 8.8 mg/dL (8.4-10.2); Carbon Dioxide 26 mmol/L (22-30); Chloride 108 mmol/L (98-107); Glucose 105 mg/dL (74-99); Non-African American GFR(CKD) >90 (>60 ml/min/1.73 sqM); Potassium 4.3 mmol/L (3.5-5.1); Sodium 140 mmol/L (137-145); Total Bilirubin 0.4 mg/dL (0.2-1.3); Total Protein 7.4 g/dL (6.3-8.2)
== END 2021-09-24 00:36 | disposition left against medical advice (07) ==
LOC: EC 21:59
DX: Z53.21 Procedure and treatment not carried out due to patient leaving prior to being seen by health care provider (principal)
CPT/HCPCS: 36415; 80053; 85025; 85610; 85730; 99499

== ENCOUNTER 2021-09-24 17:31 | Emergency (ER) | payer OTHER ==
[2021-09-24 17:39] VITALS: RESP 18; TEMP 98.1
--- NOTE | 2021-09-24 17:39 | ED ---
General Adult HPI - General Stated complaint: Vaginal Bleeding Time Seen by Provider: 09/24/21 17:35 Source: EMS Mode of arrival: EMS Limitations: no limitations - History of Present Illness Initial comments: Dictation was produced using [employer] dictation software. please excuse any grammatical, word or spelling errors. Chief Complaint: 31-year-old female presents to the emergency department for menorrhagia History of Present Illness: Patient is a 31-year-old female she is 1 year . Patient had an IUD placed 6 months . Over the last 3-4 days patient has been having excessive uterine bleeding. This is her second time having a menstrual cycle since giving . Patient was seen in the waiting room yesterday and had some blood drawn however she left because of personal reasons. Today she has been soaking through several superabsorbent tampons. She feels like she is having gushing of vaginal bleeding that has been persistent. Patient states that has been having several episodes of fainting. Patient feels as though she appears to be pale. She called EMS today and was brought to the ER. EMS reports that patient blood pressures been stable and not hypotensive. The ROS documented in this emergency department record has been reviewed and confirmed by me. Those systems with pertinent positive or negative responses bourne ve been documented in the HPI. All other systems are other negative and/or noncontributory. PHYSICAL EXAM: General Impression: Alert and oriented x3, not in acute distress HEENT: Normocephalic atraumatic, extra-ocular movements intact, pupils equal and reactive to light bilaterally, mucous membranes moist. Cardiovascular: Heart regular rate and rhythm Chest: Able to complete full sentences, no retractions, no tachypnea Abdomen: abdomen soft, non-tender, non-distended, no organomegaly Musculoskeletal: Pulses present and equal in all extremities, no peripheral edema Motor: no focal deficits noted Neurological: CN II-XII grossly intact, no focal motor or sensory deficits noted Skin: Intact with no visualized rashes Psych: Normal affect and mood ED course: Patient is 31-year-old female presents to the emergency department for menorrhagia.Laboratory evaluation obtained. CBC, metabolic panel, coag panel is unremarkable. Patient's hemoglobin stable at 11.9. Pelvic ultrasound shows IUD in the uterine fundus, no endometrial thickening no adnexal mass. Spoke with Dr. Langley who did not have any immediate recommendations except to follow-up in her office sometime this week. Patient reevaluated at bedside at 7:40 PM found to be in stable medical condition. Patient received IV fluids. She states she still does feel slightly lightheaded. Pelvic exam was performed. Cervical os was closed there was a lot of blood in the cervical fornix however no active hemorrhaging at this time. Cervix is visualized and was found be unremarkable. IUD string was noted. No adnexal tenderness or cervical motion tenderness. Patient was reevaluated again at [place] [id number] in stable medical condition. Patient stable for discharge. Return precautions discussed. Advised follow-up with [facility]. - Related Data Home Medications Medication Instructions Recorded Confirmed Pnv No.95/Ferrous Fum/Folic AC 1 tab PO DAILY 02/04/19 09/24/21 [ Multivitamin Tablet] Allergies Allergy/AdvReac Type Severity Reaction Status Date / Time codeine Allergy Severe Anaphylaxis Verified 09/24/21 19:12 Review of Systems ROS Statement: Those systems with pertinent positive or pertinent negative responses have been documented in the HPI. ROS Other: All systems not noted in ROS Statement are negative. Past Medical History Past Medical History: Skin Disorder Additional Past Medical History / Comment(s): Hx psoriasis. Hemorrhoids painful. Mild edema jama ankles. History of Any Multi-Drug Resistant Organisms: None Reported Past Surgical History: Section Past Anesthesia/Blood Transfusion Reactions: No Reported Reaction Past Psychological History: Anxiety Smoking Status: Never smoker Past Alcohol Use History: None Reported Past Drug Use History: None Reported - Past Family History Mother Family Medical History: No Reported History General Exam Limitations: no limitations Course Vital Signs 09/24/21 09/24/21 17:35 20:48 Temperature 98.1 F 98.1 F Pulse Rate 77 80 Respiratory 18 18 Rate Blood Pressure 137/83 104/60 O2 Sat by Pulse 100 100 Oximetry Medical Decision Making - Lab Data Result diagrams: 09/24/21 17:43 09/24/21 17:43 Lab Results 09/24/21 09/24/21 09/24/21 Range/Units 17:43 17:43 17:43 WBC 4.8 (3.8-10.6) k/uL RBC 3.65 L (3.80-5.40) m/uL Hgb 11.9 (11.4-16.0) gm/dL Hct 34.0 (34.0-46.0) % MCV 93.3 (80.0-100.0) fL MCH 32.5 (25.0-35.0) pg MCHC 34.8 (31.0-37.0) g/dL RDW 13.5 (11.5-15.5) % Plt Count 215 (150-450) k/uL MPV 7.5 Neutrophils % 54 % Lymphocytes % 38 % Monocytes % 5 % Eosinophils % 1 % Basophils % 1 % Neutrophils # 2.6 (1.3-7.7) k/uL Lymphocytes # 1.8 (1.0-4.8) k/uL Monocytes # 0.2 (0-1.0) k/uL Eosinophils # 0.1 (0-0.7) k/uL Basophils # 0.0 (0-0.2) k/uL PT 11.2 (9.0-12.0) sec INR 1.0 (<1.2) APTT 20.8 L (22.0-30.0) sec Sodium 136 L (137-145) mmol/L Potassium 4.3 (3.5-5.1) mmol/L Chloride 107 (98-107) mmol/L Carbon Dioxide 24 (22-30) mmol/L Anion Gap 5 mmol/L BUN 10 (7-17) mg/dL Creatinine 0.67 (0.52-1.04) mg/dL Est GFR (CKD-EPI)AfAm >90 (>60 ml/min/1.73 sqM) Est GFR (CKD-EPI)NonAf >90 (>60 ml/min/1.73 sqM) Glucose 103 H (74-99) mg/dL Calcium 10.7 H (8.4-10.2) mg/dL HCG, Quant <2.4 mIU/mL Blood Type Blood Type Recheck Bld Type Recheck Status Antibody Screen Spec Expiration Date 09/24/21 Range/Units 17:43 WBC (3.8-10.6) k/uL RBC (3.80-5.40) m/uL Hgb (11.4-16.0) gm/dL Hct (34.0-46.0) % MCV (80.0-100.0) fL MCH (25.0-35.0) pg MCHC (31.0-37.0) g/dL RDW (11.5-15.5) % Plt Count (150-450) k/uL MPV Neutrophils % % Lymphocytes % % Monocytes % % Eosinophils % % Basophils % % Neutrophils # (1.3-7.7) k/uL Lymphocytes # (1.0-4.8) k/uL Monocytes # (0-1.0) k/uL Eosinophils # (0-0.7) k/uL Basophils # (0-0.2) k/uL PT (9.0-12.0) sec INR (<1.2) APTT (22.0-30.0) sec Sodium (137-145) mmol/L Potassium (3.5-5.1) mmol/L Chloride (98-107) mmol/L Carbon Dioxide (22-30) mmol/L Anion Gap mmol/L BUN (7-17) mg/dL Creatinine (0.52-1.04) mg/dL Est GFR (CKD-EPI)AfAm (>60 ml/min/1.73 sqM) Est GFR (CKD-EPI)NonAf (>60 ml/min/1.73 sqM) Glucose (74-99) mg/dL Calcium (8.4-10.2) mg/dL HCG, Quant mIU/mL Blood Type O Positive Blood Type Recheck O Pos Bld Type Recheck Status No Antibody Screen NEGATIVE Spec Expiration Date 09/27/20212342 Disposition Clinical Impression: Menorrhagia Disposition: HOME SELF-CARE Condition: Fair Instructions (If sedation given, give patient instructions): Menorrhagia (ED) Is patient prescribed a controlled substance at d/c from ED?: No Referrals: Theodora Canales MD [Primary Care Provider] - 1-2 days Chantale Langley MD [STAFF PHYSICIAN] - 1-2 days Time of Disposition: 21:03
[2021-09-24 18:04] LABS: Prothrombin Time 11.2 sec (9.0-12.0)
[2021-09-24 18:10] LABS: Partial Thromboplastin Time 20.8 sec (22.0-30.0)
[2021-09-24 18:29] LABS: Basophils % (A) 1 %; Eosinophils # (A) 0.1 k/uL (0-0.7); Eosinophils % (A) 1 %; HGB 11.9 gm/dL (11.4-16.0); Lymphocytes # (A) 1.8 k/uL (1.0-4.8); Lymphocytes % (A) 38 %; MCH 32.5 pg (25.0-35.0); MCHC 34.8 g/dL (31.0-37.0); MCV 93.3 fL (80.0-100.0); Mean Platelet Volume 7.5; Monocytes # (A) 0.2 k/uL (0-1.0); Monocytes % (A) 5 %; Neutrophils # (A) 2.6 k/uL (1.3-7.7); Neutrophils % (A) 54 %; Platelet Count 215 k/uL (150-450); RBC 3.65 m/uL (3.80-5.40); RDW 13.5 % (11.5-15.5); WBC 4.8 k/uL (3.8-10.6)
[2021-09-24 18:36] LABS: African American GFR (CKD) >90 (>60 ml/min/1.73 sqM); Anion Gap 5 mmol/L; Blood Urea Nitrogen 10 mg/dL (7-17); Calcium 10.7 mg/dL (8.4-10.2); Carbon Dioxide 24 mmol/L (22-30); Chloride 107 mmol/L (98-107); Glucose 103 mg/dL (74-99); Non-African American GFR(CKD) >90 (>60 ml/min/1.73 sqM); Potassium 4.3 mmol/L (3.5-5.1); Sodium 136 mmol/L (137-145)
[2021-09-24 18:56] LABS: HCG,Quantitative Serum <2.4 mIU/mL
--- NOTE | 2021-09-24 19:06 | US ---
EXAMINATION TYPE: US pelvic complete DATE OF EXAM: 09/24/2021 COMPARISON: 2017 CT CLINICAL HISTORY: menorrhagia. Excessive bleeding, . IUD TECHNIQUE: Transabdominal (TA). EXAM MEASUREMENTS: Uterus: 6.4 x 3.8 x 5.6 cm Right Ovary: 3.6 x 2.0 x 2.5 cm Left Ovary: 2.1 x 1.5 x 2.1 cm 1. Uterus: Retroverted IUD appears to be in place but visualization is limited. 2. Endometrium: unable to delineate for measurement 3. Right Ovary: Follicles seen 4. Left Ovary: Appears wnl 5. Bilateral Adnexa: wnl 6. Posterior cul-de-sac: wnl Somewhat limited visualization. Patient did not want transvaginal exam. IMPRESSION: IUD in the uterine fundus. No endometrial thickening. No adnexal mass.
[2021-09-24] MEDS ORDERED: SODIUM CHLORIDE 0.9% 1,000 ML IV STA (19:20)
[2021-09-24 20:50] VITALS: BP 104/60; PULSE 80
== END 2021-09-24 21:34 | disposition home or self-care (01) ==
LOC: EC 17:31
DX: N92.0 Excessive and frequent menstruation with regular cycle (principal); Z88.5 Allergy status to narcotic agent
CPT/HCPCS: 36415; 76856; 80048; 84702; 85025; 85610; 85730; 86850; 86900; 86901; 93005